=== PATIENT | female | born 1985 | race Hispanic/Latino ===

== ENCOUNTER 2021-03-01 13:14 | Emergency (ER) | payer SELFPAY ==
[2021-03-01] MEDS ORDERED: METOCLOPRAMIDE 10 MG/2mL INJ ONE (14:03)
[2021-03-01] MEDS ORDERED: DIPHENHYDRAMINE 50 MG/ML VIAL ONE (14:03)
[2021-03-01] MEDS ORDERED: KETOROLAC 30 MG/ML INJ ONE (14:04)
[2021-03-01] MEDS ORDERED: NA CHLORIDE 0.9% 1,000 ML ONE ×2 (14:04→15:31)
[2021-03-01 14:17] LABS: Absolute Lymphocytes (CBC) 1.5 K/uL (0.7-4.9); Basophils % 0.4 % (0-1.3); Hematocrit 47.3 % (36.0-45.0); Lymphocytes % 8.4 % (15.3-44.8); MPV 10.2 fL (7.6-11.3); RBC Red Blood Cell Count 5.24 M/uL (3.86-4.86)
[2021-03-01 14:18] LABS: Potassium 4.7 mmol/L (3.5-5.1)
--- NOTE | 2021-03-01 15:06 | EDPHYS ---
Physician Documentation [facility] Name: Debbi Maldonado Age: 36 yrs Sex: Female : 1985 Arrival Date: 03/01/2021 Time: 13:18 Bed 16 Private MD: ED Physician Gama Bettencourt HPI: 03/01 14:07 This 36 yrs old Female presents to ER via Ambulatory with complaints of Covid kb + Vomiting Headache. 14:07 The patient or guardian reports flu symptoms, low-grade fever, myalgias. Onset: The kb symptoms/episode began/occurred 10 day(s) ago. Severity of symptoms: At their worst the symptoms were moderate, in the emergency department the symptoms are unchanged. Modifying factors: The symptoms are alleviated by nothing, the symptoms are aggravated by nothing. Associated signs and symptoms: Pertinent positives: fever, nausea, vomiting. The patient has not experienced similar symptoms in the past. The patient has not recently seen a physician. Pt reports she was diagnosed with covid on 02/19/21 and her symptoms are getting worse. Reports fever, malaise, fatigue, n/v, headache. . 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 - Social history:: Smoking status: Patient denies any tobacco usage or history of. ROS: 14:06 Cardiovascular: Negative for chest pain, palpitations, and edema. kb 14:06 Constitutional: Positive for body aches, chills, fatigue, fever, malaise. 14:06 Abdomen/GI: Positive for nausea and vomiting, Negative for abdominal pain. 14:06 Neuro: Positive for headache. 14:06 All other systems are negative. Exam: 14:06 Constitutional: This is a well developed, well nourished patient who is awake, alert, kb and in no acute distress. Head/Face: Normocephalic, atraumatic. ENT: Moist Mucous membranes Cardiovascular: Regular rate and rhythm with a normal S1 and S2. No gallops, murmurs, or rubs. No pulse deficits. Respiratory: Respirations even and unlabored. No increased work of breathing, no retractions or nasal flaring. Abdomen/GI: Soft, non-tender. No distention Skin: Warm, dry with normal turgor. Normal color. MS/ Extremity: Pulses equal, no cyanosis. Neurovascular intact. Full, normal range of motion. Neuro: Awake and alert, GCS 15, oriented to person, place, time, and situation. Moves all extremities. Normal gait. Psych: Awake, alert, with orientation to person, place and time. Behavior, mood, and affect are within normal limits. Vital Signs: 13:21 Pulse 125; Resp 19; Temp 98; Pulse Ox 100% ; jl7 13:23 BP 83 / 66; jl7 14:28 BP 91 / 50; Pulse 103; Resp 19; Pulse Ox 98% on R/A; oh 14:37 BP 114 / 69 Sitting; Pulse 108; Resp 20; Pulse Ox 100% ; oh 16:04 BP 102 / 55; Pulse 85; Resp 19; Pulse Ox 100% on R/A; oh MDM: 13:25 Patient medically screened. kb 14:06 Data reviewed: vital signs, nurses notes. Data interpreted: Pulse oximetry: on room air kb is 100 %. Interpretation: normal. 15:02 Counseling: I had a detailed discussion with the patient and/or guardian regarding: the kb historical points, exam findings, and any diagnostic results supporting the discharge/admit diagnosis, lab results, the need for outpatient follow up, a family practitioner, to return to the emergency department if symptoms worsen or persist or if there are any questions or concerns that arise at home. 03/01 13:26 Order name: CBC with Diff kb 03/01 13: Order name: Basic Metabolic Panel kb 03/01 13:26 Order name: CBC with Automated Diff; Complete Time: 14:19 EDMS 03/01 13:26 Order name: Basic Metabolic Panel; Complete Time: 14:19 EDMS 03/01 13:26 Order name: IV Start; Complete Time: 13:59 kb 03/01 14:19 Order name: Vital Signs; Complete Time: 14:34 kb Administered Medications: 13:40 Drug: NS 0.9% 1000 ml Route: IV; Rate: 1000 ml; Site: right antecubital; oh 13:40 Drug: Reglan (metoCLOPramide) 10 mg Route: IVP; Site: right antecubital; oh 14:25 Follow up: Response: No adverse reaction oh 13:40 Drug: Ketorolac 30 mg Route: IVP; Site: right antecubital; oh 14:25 Follow up: Response: No adverse reaction oh 13:40 Drug: Benadryl (diphenhydrAMINE) 12.5 mg Route: IVP; Site: right antecubital; oh 14:25 Follow up: Response: No adverse reaction oh 15:08 Drug: NS 0.9% 1000 ml Route: IV; Rate: 1000 ml; Site: right antecubital; oh Disposition Summary: 03/01/21 15:05 Discharge Ordered Location: Home kb Condition: Stable kb Diagnosis - Coronavirus infection, unspecified kb - Nausea with vomiting, unspecified kb Followup: kb - With: Emergency Department - When: As needed - Reason: Worsening of condition Followup: kb - With: Private Physician - When: 2 - 3 days - Reason: Recheck today's complaints, Continuance of care, Re-evaluation by your physician Discharge Instructions: - Discharge Summary Sheet kb - COVID-19 kb - COVID-19 Frequently Asked Questions kb - 10 Things You Can Do to Manage Your COVID-19 Symptoms at Home - [facility] kb Forms: - Medication Reconciliation Form kb - Thank You Letter kb - Antibiotic Education kb - Prescription Opioid Use kb Prescriptions: - Zofran 4 mg Oral Tablet - take 1 tablet by ORAL route every 6 hours As needed; 20 tablet; Refills: 0, kb Product Selection Permitted Addendum: 03/03/2021 11:01 Co-signature as Attending Physician, Gama Bettencourt MD I agree with the assessment and c hurd plan of care. Signatures: Dispatcher [employer] Kaylie Ralph, ACID CORRECTION HAND-C ACID CORRECTION HAND-Gama Crandall MD MD cha Leal, Jahala, RN RN jl7 Jennifer Banda, RN RN oh Corrections: (The following items were deleted from the chart) 03/01 13:24 13:23 PMHx: None; jl7 jl7 13:24 13:23 PSHx: None; jl7 jl7
--- NOTE | 2021-03-01 15:06 | ER ---
Nurse's Notes [facility] Name: Debbi Maldonado Age: 36 yrs Sex: Female : 1985 Arrival Date: 03/01/2021 Time: 13:18 Bed 16 Private MD: Diagnosis: Coronavirus infection, unspecified;Nausea with vomiting, unspecified Presentation: 03/01 13:21 Chief complaint: Patient states: COVID+ since 02-19-21, symptoms are worse, headache, jl7 nausea, vomiting, fatigue. Coronavirus screen: Vaccine status: Patient reports being unvaccinated. Client presents with at least one sign or symptom that may indicate coronavirus-19. Standard/surgical mask placed on the client. Provider contacted for isolation considerations. Client reports previous positive COVID test result. Ebola Screen: No symptoms or risks identified at this time. Initial Sepsis Screen: Does the patient meet any 2 criteria? Systolic BP < 90 mmHg. HR > 90 bpm. Does the patient have a suspected source of infection? No. Patient's initial sepsis screen is negative. Risk Assessment: Do you want to hurt yourself or someone else? Patient reports no desire to harm self or others. Onset of symptoms was February 19, 2021. 13:21 Method Of Arrival: Ambulatory [facility] 13:21 Acuity: BUNNY 3 jl7 Triage Assessment: 13:23 General: Appears in no apparent distress. uncomfortable, Behavior is cooperative, jl7 anxious, crying. Pain: Complains of pain in headache. 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 - Social history:: Smoking status: Patient denies any tobacco usage or history of. Screenin:40 Abuse screen: Denies threats or abuse. Nutritional screening: Has had N/V for 3 or more oh days. Tuberculosis screening: No symptoms or risk factors identified. Fall Risk None identified. Assessment: 14:38 General: Appears distressed, Behavior is calm, cooperative, agitated, restless, Reports oh feeling ill for Nausea \T\ vomiting, recently diagnosed with covid. GI: Reports nausea, vomiting. Vital Signs: 13:21 Pulse 125; Resp 19; Temp 98; Pulse Ox 100% ; jl7 13:23 BP 83 / 66; jl7 14:28 BP 91 / 50; Pulse 103; Resp 19; Pulse Ox 98% on R/A; oh 14:37 BP 114 / 69 Sitting; Pulse 108; Resp 20; Pulse Ox 100% ; oh 16:04 BP 102 / 55; Pulse 85; Resp 19; Pulse Ox 100% on R/A; oh ED Course: 13:18 Patient arrived in ED. ds1 13:23 Triage completed. jl7 13:25 Kaylie Vigil FNP-C [facility]. kb 13:25 Gama Bettencourt MD is Attending Physician. kb 13:25 Arm band placed on right wrist. jl7 13:36 Jennifer Banda, RN is Primary Nurse. oh 13:59 Basic Metabolic Panel Sent. oh 13:59 CBC with Diff Sent. oh 14:41 Bed in low position. Call light in reach. Side rails up X 1. oh 16:05 No provider procedures requiring assistance completed. IV discontinued, bleeding oh controlled, Pressure dressing applied. Administered Medications: 13:40 Drug: NS 0.9% 1000 ml Route: IV; Rate: 1000 ml; Site: right antecubital; oh 13:40 Drug: Reglan (metoCLOPramide) 10 mg Route: IVP; Site: right antecubital; oh 14:25 Follow up: Response: No adverse reaction oh 13:40 Drug: Ketorolac 30 mg Route: IVP; Site: right antecubital; oh 14:25 Follow up: Response: No adverse reaction oh 13:40 Drug: Benadryl (diphenhydrAMINE) 12.5 mg Route: IVP; Site: right antecubital; oh 14:25 Follow up: Response: No adverse reaction oh 15:08 Drug: NS 0.9% 1000 ml Route: IV; Rate: 1000 ml; Site: right antecubital; oh Outcome: 15:05 Discharge ordered by . kb 16:05 Discharged to home oh 16:05 Condition: stable 16:05 Discharge instructions given to patient. 16:06 Patient left the ED. oh Signatures: Kaylie Vigil FNP-C FNP-CkMaia Figueroa ds1 Chhaya Lucas RN RN jl7 Jennifer Banda RN RN oh Corrections: (The following items were deleted from the chart) 13: PMHx: None; jl7 jl7 13: PSHx: None; jl7 jl7 13: 13:21 Initial Sepsis Screen: Does the patient meet any 2 criteria? No. Patient's jl7 initial sepsis screen is negative. Does the patient have a suspected source of infection? No. Patient's initial sepsis screen is negative. jl7
[2021-03-01 16:13] VITALS: TEMP 98
[2021-03-01 16:26] VITALS: O2SAT 100
[2021-03-01 16:27] VITALS: BP 102/55
== END 2021-03-01 16:06 | disposition home or self-care (01) ==
LOC: ER 13:14
DX: U07.1 COVID-19 (principal)
CPT/HCPCS: 36415; 80048; 85025; 96374; 96375; 99283; J1200; J2765; J7030